=== PATIENT | male | born 1995 | race Caucasian/White ===

== ENCOUNTER 2018-10-15 18:07 | Inpatient (IN) | payer OTHER ==
[~2018-10-15] VITALS: Ht 172.7 cm; Wt 78.2 kg
[2018-10-15 18:09] VITALS: Ht 172.7 cm; Wt 78.2 kg
[2018-10-15 18:41] LABS: BASOPHIL % 0.4 % (0-2); PLATELET COUNT 206 x10^3mcL (130-400); RED CELL DISTRIBUTION WIDTH 14.2 % (11.5-14.5)
[2018-10-15 18:42] LABS: UA SPECIFIC GRAVITY >=1.030 (1.005-1.035); microscopic required? YES; urine erythrocyte TRACE (NEGATIVE)
[2018-10-15 18:51] LABS: CALCIUM 8.1 mg/dL (8.5-10.1); CARBON DIOXIDE 21.9 mmol/L (21-32); CHLORIDE SERUM 106 mmol/L (98-107); GFR1 45 mL/min; POTASSIUM SERUM 4.6 mmol/L (3.5-5.1); SODIUM SERUM 146 mmol/L (136-145)
[2018-10-15 18:55] LABS: ALKALINE PHOSPHATASE 87 U/L (46-116); ALT/SGPT 456 U/L (16-63); AST/SGOT 447 U/L (15-37); BILIRUBIN TOTAL 0.5 mg/dL (0.20-1.00)
[2018-10-15 18:57] LABS: GLUCOSE SERUM 378 mg/dL (74-106); TOTAL PROTEIN, SERUM 5.8 g/dL (6.4-8.2)
[2018-10-15 19:32] LABS: FREE T4 0.74 ng/dL (0.76-1.46); MAGNESIUM 2.9 mg/dL (1.8-2.4)
[2018-10-15 19:33] LABS: FREE THYROXINE INDEX 1.9 ug/dL (1.4-4.5); T4(THYROXINE) 4.6 ug/dL (4.7-13.3)
[2018-10-15 19:34] LABS: T3 TOTAL 1.16 ng/mL
[2018-10-15 19:39] LABS: CHOLESTEROL/HDL RATIO 5.6
[2018-10-15 19:47] LABS: AMPHETAMINE QUAL UR NONE DETECTED (See below)
[2018-10-15 21:02] VITALS: BP 123/62
[2018-10-15 21:18] LABS: CALCIUM 8.4 mg/dL (8.5-10.1); CARBON DIOXIDE 13.8 mmol/L (21-32); CREATININE SERUM 1.9 mg/dL (0.7-1.3); POTASSIUM SERUM 4.7 mmol/L (3.5-5.1)
[2018-10-15 21:41] VITALS: BP 87/49
[2018-10-15 21:55] VITALS: BP 90/56
[2018-10-16] VITALS (9 sets, daily range): BP systolic 67–107; BP diastolic 43–66
== END 2018-10-16 12:53 | disposition expired | DRG 816 ==
LOC: ED 18:07 → IC 18:42
PROVIDERS: Emergency Medicine; ADMIT Internal Medicine
PROC: 0BH17EZ Insertion of Endotracheal Airway into Trachea, Via Natural or Artificial Opening (ICD-10-PCS; principal; 2018-10-15)
PROC: 5A1935Z Respiratory Ventilation, Less than 24 Consecutive Hours (ICD-10-PCS; 2018-10-15)
PROC: 02HV33Z Insertion of Infusion Device into Superior Vena Cava, Percutaneous Approach (ICD-10-PCS; 2018-10-15)
PROC: B548ZZA Ultrasonography of Superior Vena Cava, Guidance (ICD-10-PCS; 2018-10-15)
PROC: 5A12012 Performance of Cardiac Output, Single, Manual (ICD-10-PCS; 2018-10-15)
DX: T40.1X1A Poisoning by heroin, accidental (unintentional), initial encounter (principal); I46.9 Cardiac arrest, cause unspecified; J69.0 Pneumonitis due to inhalation of food and vomit; N17.0 Acute kidney failure with tubular necrosis; G93.1 Anoxic brain damage, not elsewhere classified; E87.2 Acidosis; E44.0 Moderate protein-calorie malnutrition; E78.5 Hyperlipidemia, unspecified; Y92.89 Other specified places as the place of occurrence of the external cause; Z68.23 Body mass index [BMI] 23.0-23.9, adult; N18.9 Chronic kidney disease, unspecified; Z66 Do not resuscitate
CPT/HCPCS: 36556; 84439; A4628; G0480; J1265; J1642; J1720; J2270; J2370; J2405; J2543; J3490; J7030; J7040; Q0092